=== PATIENT | female | born 1995 | race African-American/Black ===

== ENCOUNTER 2018-03-31 10:34 | Emergency (ER) | payer MEDICAID ==
[~2018-03-31] VITALS: Ht 167.6 cm; Wt 68.0 kg
[~2018-03-31 10:34] MED LIST: ALBUTEROL SULF8.5 GM INH; AZITHROMYCIN250 MG PO; BACITRACIN ZIN1 EACH TOPIC; CEPHALEXIN500 MG ORAL; CYCLOBENZAPRINE10 MG ORAL; FLAGYL500 MG ORAL; IBUPROFEN600 MG ORAL; IBUPROFEN600 MG PO; KEFLEX500 MG ORAL; MAGIC MOUTH WAS60 ML PO; METRONIDAZOLE500 MG ORAL; NKM; PHENERGAN6.25 MG/5 ORAL; PREDNISONE20 MG ORAL; PREDNISONE50 MG PO; PROAIR HFA8.5 GM INH; ZITHROMAX250 MG ORAL
[2018-03-31] MEDS ORDERED: VITAMIN D250000 UNI1 ORAL (10:51)
[2018-03-31 11:10] VITALS: BP 107/62
[2018-03-31] MEDS: Azithromycin 250mg tab ORAL ONE ×2 (12:59→13:06)
[2018-03-31] MEDS: Lidocaine 1% MPF 10mg/ml 5ml INJ ONE ×2 (12:59→13:06)
--- NOTE | 2018-03-31 13:11 | Emergency Room Report ---
Physical Exam Vital Signs Date Time Temp Pulse Resp B/P (MAP) Pulse Ox O2 Delivery O2 Flow Rate FiO2 03/31/18 10:47 98.4 74 16 107/62 99 Room Air 98.4 Medical Decision Making ER Course I saw patient with GRACE Sandro. Folliculitis noted. UA sent for gc/chlamydia at patient request but based upon hx., no new sexual exposure since last test, scant white-sushila d/c, will not treat, per patient request. We do have her phone number and she is aware we will call if positive and she will have to return. Pt. advised to call Wednesday night when I am on duty and I can read her results. Last Vital Signs Date Time Temp Pulse Resp B/P (MAP) Pulse Ox O2 Delivery O2 Flow Rate FiO2 03/31/18 11:10 98.4 16 107/62 99 Room Air 98.4 03/31/18 10:47 74 Referrals: NOT CHOSEN LETY/,REFERRING (PCP) Onofre Fabian M.D. Mar 31, 2018 13:10
[2018-03-31 13:43] LABS: APPEARANCE,URINE CLEAR; BILIRUBIN, URINE NEGATIVE (NEGATIVE); COLOR,URINE PALE YELLOW; GLUCOSE, URINE (UA) NEGATIVE (NEGATIVE); KETONES,URINE NEGATIVE (NEGATIVE); LEUKOCYTE ESTERASE ,URINE NEGATIVE (NEGATIVE); NITRITE,URINE NEGATIVE (NEGATIVE); PH,URINE 6 (4.5-8.0); PROTEIN,URINE NEGATIVE (NEGATIVE); UROBILINOGEN,URINE NORMAL MG/DL (0.0-1.0)
--- NOTE | 2018-03-31 13:56 | Emergency Room Report ---
History of Present Illness General Chief Complaint: Female Urogenital Problems Source: Patient Present Illness HPI This patient c/o pain/bump vaginal area about 1-2 days. She had waxed the area a few days ago. There is no new sexual exposure. She has had STD screening in the past; negative. No fever, no dysuria, no vag bleed, no abd pain. LMP normal. Not concerned about ; only here for this "bump." Allergies: Coded Allergies: No Known Allergies (Unverified , 04/16/12) Patient History Last Menstrual Period: 03/23/2018 Now: No Nursing Documentation-[facility] Past Medical History: No History, Except For Review of Systems Constitutional: Reports: no symptoms Eye: Reports: no symptoms ENT: Reports: no symptoms Respiratory: Reports: no symptoms Cardiovascular: Reports: no symptoms Gastrointestinal: Reports: no symptoms Genitourinary: Reports: no symptoms Musculoskeletal: Reports: no symptoms Skin: Reports: no symptoms Psychiatric: Reports: no symptoms Neurological: Reports: no symptoms Endocrine: Reports: no symptoms Hematologic/Lymphatic: Reports: no symptoms Allergic: Reports: no symptoms All Other Systems: negative except mentioned in HPI Physical Exam Vital Signs Date Time Temp Pulse Resp B/P (MAP) Pulse Ox O2 Delivery O2 Flow Rate FiO2 03/31/18 10:47 98.4 74 16 107/62 99 Room Air 98.4 Sp02 EP Interpretation: reviewed, normal General Appearance: normal inspection, well appearing, no apparent distress, alert, GCS 15, non-toxic Head: normocephalic, atraumatic Eyes: bilateral eye normal inspection, bilateral eye PERRL, bilateral eye EOMI ENT: normal ENT inspection, hearing grossly normal, normal pharynx, no angioedema, normal voice, moist mucus membranes Neck: normal inspection, full range of motion, supple, no meningismus, no bony tend Respiratory: normal inspection, lungs clear, normal breath sounds, no rhonchi, no respiratory distress, no retraction, no accessory muscle use, no wheezing Cardiovascular #1: normal inspection, regular rate, rhythm, no edema Gastrointestinal: normal inspection, normal bowel sounds, non tender, soft, no mass, non-distended Genitourinary: other - there is a small area about 1/2 cm x one cm at 11 o' clock just proximal to the right labia majora that is tender, swollen. no vesicles. Musculoskeletal: gait/station normal, normal range of motion Neurologic: normal inspection, alert, oriented x3, responsive, motor strength/ tone normal Psychiatric: normal inspection, judgement/insight normal, memory normal Suicide Risk Assessment: Suicidal Ideation: No Had intent to initiate attempt: No Pt's plan for suicide attempt: No Has means to complete attempt: No Skin: normal inspection, normal color, no rash, warm/dry Medical Decision Making Diagnostic Impression: Primary Impression: Folliculitis ER Course likely folliculitis; recommend local heat. Last Vital Signs Date Time Temp Pulse Resp B/P (MAP) Pulse Ox O2 Delivery O2 Flow Rate FiO2 03/31/18 11:10 98.4 16 107/62 99 Room Air 98.4 03/31/18 10:47 74 Status: improved Disposition: HOME, SELF-CARE Condition: Stable Referrals: NOT CHOSEN [facility]/,REFERRING (PCP) Onofre Fabian M.D. Mar 31, 2018 13:56
[2018-03-31 14:15] VITALS: BP 107/62
== END 2018-03-31 14:16 | disposition home or self-care (01) ==
LOC: EMR 12:51
DX: L73.9 Follicular disorder, unspecified (principal)
CPT/HCPCS: 81003; 81025; 87491; 87590; 99283

== ENCOUNTER 2018-09-12 12:13 | Emergency (ER) | payer SELFPAY ==
[~2018-09-12] VITALS: Ht 177.8 cm; Wt 77.6 kg
[~2018-09-12 12:13] MED LIST changes: +VITAMIN D250000 UNI1 ORAL
--- NOTE | 2018-09-12 12:30 | NUR ---
ED Nurse Note: A/OX4. AMBUALTED IN TO ER WITH MOM DUE TO ABCESS ON THE RIGHT INNER THIGH AND WHITE DISCHARGE WITH ODOR FROM VAGINAL AREA X 1 MONTH.
[2018-09-12] MEDS ORDERED: Lidocaine 1% MPF 10mg/ml 5ml INJ ONE (13:00)
[2018-09-12] MEDS ORDERED: Fluconazole 100mg tab ORAL ONE (13:00)
[2018-09-12] MEDS ORDERED: Azithromycin 250mg tab ORAL ONE (13:00)
--- NOTE | 2018-09-12 13:12 | Emergency Room Report ---
History of Present Illness General Chief Complaint: Vaginal Source: Patient Present Illness HPI 23-year-old female patient presents the ER complaining of vaginal discharge and abscess on inner thigh. Reports abscess is been present for the past 4 days. Reports was bigger yesterday however states it is slightly more painful today. Denies drainage., States however it was not painful. Reports history of similar symptoms in the past. States bump "never fully went away" Denies fever , chest pain, shortness of breath. Denies history of diabetes. Also complaining of foul-smelling odor and white vaginal discharge for 1 month. Denies dysuria, hematuria. Reports recent sexual activity 3 months ago, states has not been tested for STI since that time. Reports was previously tested and came back negative. Denies flank pain, abdominal pain. Patient reports she was recently treated for yeast infection, states this feels similar, reports complete full course of treatment previously and symptoms resolved prior to onset of current symptoms. Denies pain with defecation, denies blood in stool. Reports history of shaving pubic hair. Allergies: Coded Allergies: No Known Allergies (Unverified , 04/16/12) Patient History Past Medical History: see triage record Reviewed Nursing Documentation: PMH: Agreed; PSxH: Agreed Nursing Documentation-PMH Past Medical History: No History, Except For Review of Systems All Other Systems: negative except mentioned in HPI Physical Exam Vital Signs Date Time Temp Pulse Resp B/P (MAP) Pulse Ox O2 Delivery O2 Flow Rate FiO2 09/12/18 12:27 98.2 82 18 110/72 99 Sp02 EP Interpretation: reviewed, normal General Appearance: well appearing, no apparent distress, alert, GCS 15, non- toxic Head: normocephalic, atraumatic Eyes: bilateral eye normal inspection, bilateral eye PERRL ENT: hearing grossly normal, normal pharynx, no angioedema, normal voice, uvula midline, moist mucus membranes Neck: full range of motion Respiratory: lungs clear, normal breath sounds, no rhonchi, no respiratory distress, no accessory muscle use, no wheezing, speaking full sentences Cardiovascular #1: regular rate, rhythm, no edema Gastrointestinal: non tender, soft, no mass, non-distended, no guarding, no rebound Genitourinary: no CVA tenderness Musculoskeletal: back normal, digits/nails normal, gait/station normal, normal range of motion, non-tender Neurologic: alert, oriented x3, responsive, motor strength/tone normal, sensory intact Psychiatric: mood/affect normal Skin: no rash, other - Right proximal inferior thigh: 1cm indurated mass, no overlying erythema, no no edema, no drainage, no fluctuance Medical Decision Making PA Attestation Dr. Lopez is my supervising Physician whom patient management has been discussed with. Diagnostic Impression: Primary Impression: Abscess Additional Impressions: Encounter for assessment of sexually transmitted disease exposure Bacterial vaginosis ER Course Pt. presents to the ED c/o vaginal discharge and abscess. Ddx considered but are not limited to gonorrhea, chlamydia, cystitis, pyelonephritis, bacterial vaginosis, yeast infection, abscess, cellulitis, folliculitis. Vital signs: are WNL, pt. is afebrile Ordered UA and abx. ER COURSE: Physical exam performed with female extruder present. Shows less than 2 cm indurated abscess on proximal right thigh, no overlying erythema or edema, no fluctuance, do not believe patient would benefit from I&D procedure at this time. Will discharge patient home with antibiotics to cover for possible infection. Advised patient not to shave in that area. Advised to follow-up with primary care provider in 2-3 days for wound check. Provide with contact information for general surgeon to discuss surgical removal due to history of similar symptoms in the past in the same area. Denies pain with defecation, denies blood in stool, does not require CT abdomen pelvis at this time. UA results show unremarkable, does not require treatment for UTI at this time.. Urine negative Clinical symptoms consistent with possible bacterial vaginosis, will treat clinically with metronidazole, advised not to drink alcohol while taking medication. Provided patient with Rocephin and Azithromycin in the ER. Informed patient medications will cover for gonorrhea and chlamydia, needs further follow-up evaluation and possible treatment of other sexual transmitted infections. Advised to use safe sex practices including but not limited to use of condoms. Avoid sexual activity for the next 2 weeks. Instructed patient to follow up with STI clinic and/or PCP for STI evaluation and further treatment as necessary. Instructed patient to inform partners of needs for evaluation and treatment of possible infections. ER precautions given. DISCHARGE: Patient is resting comfortably, in no acute distress, nontoxic appearing, talking without difficulty. Patient to take medications as instructed Will provide with patient care instructions and any necessary prescriptions. Care plan and follow-up instructions provided. Patient instructed to follow-up with primary care provider in 3 - 5 days. Patient questions asked and answered. Patient reports understanding and agreement to treatment plan. ER precautions given. Patient instructed to return to ER immediately for any new or worsening of symptoms including but not limited to increasing SOB, persistent fever. - Please note that this Emergency Department Report was dictated using [employer] maintenance engineer technology software, occasionally this can lead to erroneous entry secondary to interpretation by the dictation equipment. Labs Test 09/12/18 12:30 Urine Color Pale yellow Urine Appearance Clear Urine pH 7 (4.5-8.0) Urine Specific [place] 1.010 (1.005-1.035) Urine Protein Negative (NEGATIVE) Urine Glucose (UA) Negative (NEGATIVE) Urine Ketones Negative (NEGATIVE) Urine Blood Negative (NEGATIVE) Urine Nitrite Negative (NEGATIVE) Urine Bilirubin Negative (NEGATIVE) Urine Urobilinogen Normal MG/DL (0.0-1.0) Urine Leukocyte Esterase 1+ (NEGATIVE) Urine RBC 0-2 /HPF (0 - 2) Urine WBC 0-2 /HPF (0 - 2) Urine Squamous Epithelial Cells Moderate /LPF (NONE/OCC) Urine Amorphous Sediment Few /LPF (NONE) Urine Bacteria Few /HPF (NONE) Urine HCG, Qualitative Negative (NEGATIVE) Last Vital Signs Date Time Temp Pulse Resp B/P (MAP) Pulse Ox O2 Delivery O2 Flow Rate FiO2 09/12/18 12:27 98.2 82 18 110/72 99 Disposition: HOME, SELF-CARE Condition: Stable Scripts Cephalexin* (KEFLEX*) 500 Mg Capsule 500 MG ORAL EVERY 12 HOURS, #14 CAP 0 Refills Prov: Ethan Rosas.Levi 09/12/18 Metronidazole* (FLAGYL*) 500 Mg Tablet 500 MG ORAL BID for 7 Days, #14 TAB Prov: Ethan Rosas 09/12/18 Patient Instructions: Abscess, [id number], Bacterial Vaginosis, [id number] , Sexually Transmitted Disease, [id number] Additional Instructions: Followup with primary care provider and followup with STI clinic for further evaluation and treatment. Follow-up with general surgeon and primary care provider to discuss recurrence of abscess. Apply warm compresses. Sits baths. Take Tylenol for pain symptoms. Do not drink alcohol while taking metronidazole. Alert sexual partners for need for evaluation and treatment. Wear condoms during sex. Avoid sexual activity for 2 weeks. Drink plenty of fluids. Patient questions asked and answered. ER precautions given, patient instructed to return to ER immediately for any new or worsening of symptoms. Ethan Rosas Sep 12, 2018 13:12
[2018-09-12 13:38] LABS: APPEARANCE,URINE CLEAR; BILIRUBIN, URINE NEGATIVE (NEGATIVE); COLOR,URINE PALE YELLOW; GLUCOSE, URINE (UA) NEGATIVE (NEGATIVE); KETONES,URINE NEGATIVE (NEGATIVE); LEUKOCYTE ESTERASE ,URINE 1+ (NEGATIVE); NITRITE,URINE NEGATIVE (NEGATIVE); PH,URINE 7 (4.5-8.0); PROTEIN,URINE NEGATIVE (NEGATIVE); UROBILINOGEN,URINE NORMAL MG/DL (0.0-1.0)
[2018-09-12] MEDS ORDERED: METRONIDAZOLE500 MG ORAL (13:57)
[2018-09-12] MEDS ORDERED: CEPHALEXIN500 MG ORAL (13:57)
[2018-09-12 13:58] VITALS: BP 110/72
[2018-09-12 14:50] VITALS: BP 110/72
--- NOTE | 2018-09-12 14:54 | NUR ---
ED Nurse Note: A/Ox4. Pt is cleared by GRACE Jo. DC instruction and prescriptions given, pt verbalized understanding. IV/ID wristband removed. All belongings taken by pt. Denies pain at this time. Pt ambulated out of ER with steady gait.
== END 2018-09-12 14:54 | disposition home or self-care (01) ==
LOC: EMR 13:04
DX: L02.415 Cutaneous abscess of right lower limb (principal); N76.0 Acute vaginitis; B96.89 Other specified bacterial agents as the cause of diseases classified elsewhere
CPT/HCPCS: 81003; 81025; 96372; 96374; 99284; J0696